=== PATIENT | male | born 1980 | race Caucasian/White ===

== ENCOUNTER 2017-06-25 08:42 | Emergency (ER) | payer OTHER ==
[~2017-06-25] VITALS: Ht 175.3 cm; Wt 121.0 kg
[~2017-06-25 08:42] MED LIST: ATIVAN1 MG PO; MOTRIN800 MG PO; NOHOMEMEDS
[2017-06-25] MEDS ORDERED: TESTOSTERO200 MG/12 IM (10:49)
[2017-06-25] MEDS ORDERED: TRULICITY0.75 MG/0. SC (10:49)
[2017-06-25 11:54] LABS: BASOPHIL (%) 0.4 % (0-1); EOSINOPHIL (%) 2.5 % (0-5); EOSINOPHIL COUNT 0.2 K/uL (0-0.3); HEMOGLOBIN 14.8 G/DL (12.5-16.6); IMMATURE GRANULOCYTE (%) 0.6 % (0.0-0.7); LYMPHOCYTE (%) 17.6 % (15-42); LYMPHOCYTE COUNT 1.5 K/uL (1.0-2.8); MCH 28.6 PG (29.0-34.0); MCHC 32.9 G/DL (30.0-36.0); MONOCYTE (%) 7.5 % (3-12); MONOCYTE COUNT 0.6 K/uL (0-0.8); NEUTROPHIL (%) 71.4 % (45-76); NEUTROPHIL COUNT 6.1 K/uL (1.8-6.4); PLATELET COUNT 228 K/uL (156-360); RBC DIS.WIDTH-SD 45.1 % (39-53); RED BLOOD COUNT 5.17 M/uL (4.00-5.50); WHITE BLOOD COUNT 8.6 K/uL (4.1-10.2)
[2017-06-25 12:02] LABS: CHLORIDE 104 mEq/L (99-109); SODIUM 137 mEq/L (136-147)
[2017-06-25 12:03] LABS: GLUCOSE 174 mg/dL (70-99)
[2017-06-25 12:07] LABS: CREATININE 0.9 mg/dL (0.6-1.3); GFR ESTIMATE (CALCULATED) > 59 mL/min/ (58.99-99999)
[2017-06-25 12:08] LABS: UREA NITROGEN (BUN) 12 mg/dL (9-23)
[2017-06-25] MEDS ORDERED: FLEXERIL10 MG PO (13:41)
[2017-06-25] MEDS ORDERED: PERCOCET 5/31 TABLET PO (13:41)
[2017-06-25 13:57] VITALS: BP 141/93
== END 2017-06-25 13:58 | disposition home or self-care (01) ==
LOC: EME 08:42
PROVIDERS: Emergency Medicine
DX: S30.1XXA Contusion of abdominal wall, initial encounter (principal); S60.222A Contusion of left hand, initial encounter; S50.11XA Contusion of right forearm, initial encounter; V49.40XA Driver injured in collision with unspecified motor vehicles in traffic accident, initial encounter; Z88.0 Allergy status to penicillin; Z87.891 Personal history of nicotine dependence
CPT/HCPCS: 70450; 71046; 72125; 73090; 73130; 74177; 80048; 85025; 99281; 99284; J2270; J7030

== ENCOUNTER 2018-01-16 03:23 | Emergency (ER) | payer OTHER ==
[~2018-01-16] VITALS: Ht 175.3 cm; Wt 107.3 kg
[~2018-01-16 03:23] MED LIST changes: +FLEXERIL10 MG PO; +PERCOCET 5/31 TABLET PO; +TESTOSTERO200 MG/12 IM; +TRULICITY0.75 MG/0. SC
[2018-01-16 03:45] LABS: HEMATOCRIT 44.6 % (38.0-50.0); MCH 28.6 PG (29.0-34.0); MCHC 33.6 G/DL (30.0-36.0); MCV 85.1 FL (86-99); PLATELET COUNT 224 K/uL (156-360); RBC DIS.WIDTH-CV 13.3 % (11.8-14.6); RBC DIS.WIDTH-SD 41.7 % (39-53); RED BLOOD COUNT 5.24 M/uL (4.00-5.50); WHITE BLOOD COUNT 6.6 K/uL (4.1-10.2)
[2018-01-16 03:54] LABS: CHLORIDE 102 mEq/L (99-109); POTASSIUM 3.4 mEq/L (3.7-5.4); SODIUM 142 mEq/L (136-147)
[2018-01-16 03:56] LABS: GLUCOSE 98 mg/dL (70-99)
[2018-01-16 04:00] LABS: CREATININE 0.9 mg/dL (0.6-1.3); GFR ESTIMATE (CALCULATED) > 59 mL/min/ (58.99-99999)
[2018-01-16 04:01] LABS: UREA NITROGEN (BUN) 19 mg/dL (9-23)
[2018-01-16 05:31] LABS: INTER. NORMALIZED RATIO 1.1
[2018-01-16 05:35] LABS: TOTAL PROTEIN 6.4 g/dL (6.4-8.3)
[2018-01-16 05:37] LABS: TOTAL BILIRUBIN 0.6 mg/dL (0.0-1.0)
[2018-01-16 05:38] LABS: ALKALINE PHOSPHATASE 77 IU/L (3-129); SERUM ETHYL ALCOHOL < 10 mg/dL
[2018-01-16 05:40] LABS: AST (GOT) 34 IU/L (2-34); DIRECT BILIRUBIN 0.2 mg/dL (0.0-0.3)
[2018-01-16 05:41] LABS: ALT (GPT) 51 IU/L (3-49)
[2018-01-16 05:42] LABS: LIPASE 11 U/L (1.0-51.0)
[2018-01-16 09:05] LABS: CSF PROTEIN 92 mg/dL (15-45)
[2018-01-16 09:11] LABS: GLUCOSE, CSF 46 mg/dL (40-80)
[2018-01-16 09:14] LABS: APPEARANCE CLEAR/COLORLESS; CSF TUBE NUMBER TUBE #4; RED CELL COUNT 1 /MM^3 (0-1); WHITE CELL COUNT 1 /MM^3 (0-5)
[2018-01-16 09:21] LABS: CSF EOSINOPHILS 0 % (0-25); MONONUCLEAR WBC'S 97 % (50-90); POLYNUCLEAR WBC'S 3 % (0-3)
[2018-01-16] MEDS ORDERED: ZOFRAN4 MG PO (11:03)
[2018-01-16] MEDS ORDERED: ZOFRAN ODT4 MG PO (11:14)
[2018-01-16 11:19] VITALS: BP 135/82
== END 2018-01-16 11:24 | disposition home or self-care (01) ==
LOC: EME → EDBD 03:23 → EME 11:24
PROVIDERS: Emergency Medicine
PROC: 009U3ZX Drainage of Spinal Canal, Percutaneous Approach, Diagnostic (ICD-10-PCS; principal; 2018-01-16)
DX: R56.9 Unspecified convulsions (principal); R51 Headache; F17.200 Nicotine dependence, unspecified, uncomplicated; Z88.0 Allergy status to penicillin
CPT/HCPCS: 70450; 80048; 80076; 82945; 83690; 84157; 85027; 85610; 87205; 89051; 93005; 99281; 99285; G0480; J2405; J7030

== ENCOUNTER 2018-01-19 17:27 | Observation (INO) | payer OTHER ==
[~2018-01-19] VITALS: Ht 175.3 cm; Wt 113.7 kg
[~2018-01-19 17:27] MED LIST changes: +ZOFRAN ODT4 MG PO; +ZOFRAN4 MG PO
[2018-01-19 18:27] LABS: BASOPHIL (%) 0.3 % (0-1); EOSINOPHIL (%) 1.3 % (0-5); EOSINOPHIL COUNT 0.1 K/uL (0-0.3); HEMATOCRIT 42.3 % (38.0-50.0); HEMOGLOBIN 13.8 G/DL (12.5-16.6); IMMATURE GRANULOCYTE (%) 0.6 % (0.0-0.7); LYMPHOCYTE (%) 15.3 % (15-42); LYMPHOCYTE COUNT 1.4 K/uL (1.0-2.8); MCH 28.5 PG (29.0-34.0); MCHC 32.6 G/DL (30.0-36.0); MCV 87.2 FL (86-99); MONOCYTE (%) 7.7 % (3-12); MONOCYTE COUNT 0.7 K/uL (0-0.8); NEUTROPHIL (%) 74.8 % (45-76); NEUTROPHIL COUNT 6.7 K/uL (1.8-6.4); PLATELET COUNT 224 K/uL (156-360); RBC DIS.WIDTH-CV 13.7 % (11.8-14.6); RBC DIS.WIDTH-SD 44.1 % (39-53); RED BLOOD COUNT 4.85 M/uL (4.00-5.50); WHITE BLOOD COUNT 8.9 K/uL (4.1-10.2)
[2018-01-19 18:38] LABS: CHLORIDE 103 mEq/L (99-109); POTASSIUM 3.5 mEq/L (3.7-5.4); SODIUM 141 mEq/L (136-147)
[2018-01-19 18:41] LABS: GLUCOSE 90 mg/dL (70-99); TOTAL PROTEIN 6.3 g/dL (6.4-8.3)
[2018-01-19 18:43] LABS: SERUM ETHYL ALCOHOL < 10 mg/dL
[2018-01-19 18:44] LABS: ALKALINE PHOSPHATASE 85 IU/L (3-129); GFR ESTIMATE (CALCULATED) > 59 mL/min/ (58.99-99999)
[2018-01-19 18:45] LABS: UREA NITROGEN (BUN) 12 mg/dL (9-23)
[2018-01-19 18:46] LABS: AST (GOT) 19 IU/L (2-34)
[2018-01-19 18:47] LABS: ALT (GPT) 33 IU/L (3-49); CREATINE KINASE 98 IU/L (1-294); TOTAL CK 98 IU/L (1-294)
[2018-01-19 18:52] LABS: TOTAL BILIRUBIN 0.3 mg/dL (0.0-1.0)
[2018-01-19 18:53] LABS: TROP-I INTERPRETATION NEGATIVE; TROPONIN-I < 0.01 ng/mL (0.0-0.30)
[2018-01-19 18:54] LABS: CK-MB 2.1 ng/mL (0.0-4.9); CKMB RELATIVE INDEX 2.1 (0.0-3.9)
[2018-01-19] MEDS ORDERED: ADDERALL XR 1515 MG PO (19:50)
[2018-01-19] MEDS ORDERED: METHADONE10 MG/1 M1 PO (19:50)
[2018-01-19 19:56] LABS: APPEARANCE CLEAR ((CLEAR)); BILIRUBIN NEGATIVE; BLOOD NEGATIVE; COLOR YELLOW ((YELLOW)); GLUCOSE (STRIP) NEGATIVE; KETONES NEGATIVE; LEUKOCYTES TRACE; NITRITE NEGATIVE; PROTEIN (STRIP) NEGATIVE; SPECIFIC GRAVITY 1.018 (1.000-1.030)
[2018-01-19 20:01] LABS: BACTERIA NONE SEEN /HPF; EPITHELIAL CELLS RARE /HPF; MUCUS TRACE /LPF; RED BLOOD CELLS 0-5 /HPF (0-5); UCUL ADDED? YES
[2018-01-19 20:04] LABS: AMPHETAMINE NEGATIVE (500 ng/mL); BARBITURATES NEGATIVE (200 ng/mL); BENZODIAZEPINES NEGATIVE (150 ng/mL); BUPRENORPHINE NEGATIVE (10 ng/mL); COCAINE NEGATIVE (150 ng/mL); METHADONE PRESUMPTIVE POSITIVE (200 ng/mL); METHAMPHETAMINE NEGATIVE (500 ng/mL); OPIATES (MORPHINE) NEGATIVE (100 ng/mL); OXYCODONE NEGATIVE (100 ng/mL); PHENCYCLIDINE NEGATIVE (25 ng/mL); PROPOXYPHENE NEGATIVE (300 ng/mL); THC CANNABINOIDS PRESUMPTIVE POSITIVE (50 ng/mL); TRICYCLIC ANTIDEPRESSANTS NEGATIVE (300 ng/mL)
[2018-01-19 22:43] LABS: MAGNESIUM 2.2 mg/dL (1.3-2.7)
[2018-01-19 22:48] LABS: PHOSPHORUS 3.6 mg/dL (2.5-4.9)
[2018-01-19 23:23] VITALS: BP 121/80
[2018-01-19 23:34] LABS: FOLIC ACID (FOLATE) 9.1 NG/ML (5.0-22.0)
[2018-01-20 00:04] LABS: PROLACTIN 19.5 NG/ML
[2018-01-20 03:43] VITALS: BP 122/73
[2018-01-20 07:32] VITALS: BP 118/66
[2018-01-20 11:33] VITALS: BP 120/76
[2018-01-20] MEDS ORDERED: LEVETIRACETAM500 MG PO (14:45)
== END 2018-01-20 16:12 | disposition home or self-care (01) ==
LOC: EME 17:27 → EDOF 21:23 → 4SOUTH 23:06
PROVIDERS: Emergency Medicine; Hospitalist
DX: R56.9 Unspecified convulsions (principal); E66.01 Morbid (severe) obesity due to excess calories; Z68.37 Body mass index [BMI] 37.0-37.9, adult; G43.909 Migraine, unspecified, not intractable, without status migrainosus; Z83.49 Family history of other endocrine, nutritional and metabolic diseases; Z88.0 Allergy status to penicillin; Z88.8 Allergy status to other drugs, medicaments and biological substances
CPT/HCPCS: 70551; 80053; 81003; 82330; 82550; 82553; 82607; 82746; 83735; 84100; 84146; 84403; 84439; 84443; 84484; 84999; 85025; 87086; 93005; 99281; 99285; G0378; G0480; J1650; J1953; J2405; J7030; J7050

== ENCOUNTER 2018-01-29 10:08 | Emergency (ER) | payer OTHER ==
[~2018-01-29] VITALS: Ht 175.3 cm; Wt 108.9 kg
[~2018-01-29 10:08] MED LIST changes: +ADDERALL XR 1515 MG PO; +LEVETIRACETAM500 MG PO; +METHADONE10 MG/1 M1 PO
[2018-01-29 10:42] LABS: BASOPHIL (%) 0.4 % (0-1); EOSINOPHIL (%) 2.2 % (0-5); EOSINOPHIL COUNT 0.2 K/uL (0-0.3); HEMATOCRIT 46.2 % (38.0-50.0); HEMOGLOBIN 15.1 G/DL (12.5-16.6); IMMATURE GRANULOCYTE (%) 0.7 % (0.0-0.7); LYMPHOCYTE (%) 21.6 % (15-42); LYMPHOCYTE COUNT 1.6 K/uL (1.0-2.8); MCH 28.3 PG (29.0-34.0); MCHC 32.7 G/DL (30.0-36.0); MCV 86.5 FL (86-99); MONOCYTE (%) 8.6 % (3-12); MONOCYTE COUNT 0.7 K/uL (0-0.8); NEUTROPHIL (%) 66.5 % (45-76); PLATELET COUNT 198 K/uL (156-360); RBC DIS.WIDTH-CV 14.1 % (11.8-14.6); RBC DIS.WIDTH-SD 44.5 % (39-53); RED BLOOD COUNT 5.34 M/uL (4.00-5.50); WHITE BLOOD COUNT 7.6 K/uL (4.1-10.2)
[2018-01-29 10:56] LABS: CHLORIDE 105 mEq/L (99-109); SODIUM 141 mEq/L (136-147)
[2018-01-29 10:57] LABS: GLUCOSE 92 mg/dL (70-99)
[2018-01-29 11:01] LABS: CREATININE 0.9 mg/dL (0.6-1.3); GFR ESTIMATE (CALCULATED) > 59 mL/min/ (58.99-99999)
[2018-01-29 11:02] LABS: UREA NITROGEN (BUN) 14 mg/dL (9-23)
[2018-01-29 12:40] VITALS: BP 143/94
== END 2018-01-29 12:08 | disposition home or self-care (01) ==
LOC: EME 10:08
PROVIDERS: Emergency Medicine
DX: G40.909 Epilepsy, unspecified, not intractable, without status epilepticus (principal); F41.9 Anxiety disorder, unspecified; F17.200 Nicotine dependence, unspecified, uncomplicated; Z79.891 Long term (current) use of opiate analgesic; Z88.0 Allergy status to penicillin
CPT/HCPCS: 70450; 80048; 85025; 93005; 99281; 99284